=== PATIENT | female | born 1995 | race Caucasian/White ===

== ENCOUNTER 2021-10-29 13:36 | Emergency (ER) | payer MEDICAID ==
[~2021-10-29] VITALS: Ht 170.2 cm; Wt 128.8 kg
[2021-10-29 13:40] VITALS: BP 149/73
[2021-10-29] MEDS ORDERED: MORPHINE SULFATE 4 MG/ML SYR IVP ONE (14:25)
[2021-10-29] MEDS ORDERED: NACL 0.9% 1,000 ML IV ONE (14:25)
[2021-10-29] MEDS ORDERED: METOCLOPRAMIDE 10 MG/2 ML INJ VIAL IVP ONE (14:25)
--- NOTE | 2021-10-29 14:32 | NUR ---
FLU AND NATHANIEL SWAB COLLECTED AND HANDED TO MONTEZ GARSIA
--- NOTE | 2021-10-29 14:48 | NUR ---
26 Y/O F BIB SELF WITH C/O BODY ACHES, CHILLS, AND NAUSEA X1 WEEK, REPORTS TAKING IBUPROFEN AND PENICILLIN WITH NO RELIEF. DENIES SOB, CP, FEVERS OR RECENT SICK CONTACTS. PT STATES 8/10 PAIN. MEDHX: ANEMIA ALLERGIES: NKA
[2021-10-29 14:52] LABS: BILIRUBIN,URINE NEGATIVE (NEGATIVE); BLOOD, URINE NEGATIVE (NEGATIVE); LEUKOCYTE ESTERASE ,URINE TRACE (NEGATIVE); NITRITE, URINE NEGATIVE (NEGATIVE); UGLUCOSE NEGATIVE (NEGATIVE)
[2021-10-29 14:54] LABS: APPEARANCE,URINE HAZY (CLEAR); COLOR,URINE STRAW (YELLOW)
[2021-10-29 15:16] LABS: RBC,URINE NONE SEEN /HPF (0-5); WBC,URINE 0-5 /HPF (0-5); YEAST,URINE Few /HPF (None Seen)
[2021-10-29] MEDS ORDERED: FLUCONAZOLE 100 MG TAB PO ONE (15:50)
[2021-10-29] MEDS ORDERED: CRUSHER, PILL MC ONE (15:54)
--- NOTE | 2021-10-29 16:00 | NUR ---
PT REQUESTING FOR JUICE. PER DR EMERITA MARTINEZ TO GIVE. APPLE JUICE PROVIDED.
--- NOTE | 2021-10-29 16:27 | NUR ---
DR FELDER AT BEDSIDE REEXAMINING PT
--- NOTE | 2021-10-29 16:33 | NUR ---
XRAY AT BEDSIDE
--- NOTE | 2021-10-29 16:39 | NUR ---
LAB AT BEDSIDE
[2021-10-29 17:09] LABS: BASOPHILS % (AUTO) 0.2 % (0.0-2.0); EOSINOPHILS % (AUTO) 0.2 % (0.0-4.0); HEMATOCRIT 24.2 % (36-48); HEMOGLOBIN 7.1 g/dL (12.0-16.0); LYMPHOCYTES % (AUTO) 11.5 % (20.5-51.1); MEAN CORPUSCULAR HEMOGLOBIN 17 pg (27-31); MEAN CORPUSCULAR HGB CONC 30 g/dL (33-37); MEAN CORPUSCULAR VOLUME 57.7 fL (80-94); MONOCYTES # (AUTO) 0.5 K/uL (0.8-1.0); MONOCYTES % (AUTO) 6.3 % (1.7-9.3); NEUTROPHILS # (AUTO) 6.9 K/uL (1.8-7.7); NEUTROPHILS % (AUTO) 81.8 % (42.2-75.2); PLATELET COUNT (AUTO) 165 K/uL (140-450); RED BLOOD CELL COUNT(AUTO) 4.19 MIL/uL (4.20-5.40); RED CELL DISTRIBUTION WIDTH 20.1 % (11.6-13.7); WHITE BLOOD COUNT (AUTO) 8.5 K/uL (4.8-10.8)
--- NOTE | 2021-10-29 17:53 | NUR ---
Caty asher in ED - 10/29/21 at 1924 by [email or web address] PT REQUESTING FOR MARK, PER DR EMERITA MARTINEZ TO GIVE. PROVIDED WITH SANDWICH
--- NOTE | 2021-10-29 17:53 | NUR ---
PT REQUESTING FOR FOOD, PER DR EMERITA MARTINEZ TO GIVE. PROVIDED WITH SANDWICH
--- NOTE | 2021-10-29 19:24 | NUR ---
Pt report given to MAREN MARTINI. Transfer of care at this time.
--- NOTE | 2021-10-29 19:40 | NUR ---
LABS AT BEDSIDE FOR BLOOD REDRAW
--- NOTE | 2021-10-29 21:36 | NUR ---
S/W TOM GIORDANO WHO STATED BLOOD WILL NOT BE READY TONIGHT D/T ANTIBODIES AND WILL NEED TO BE SENT OUT TO [place]. DR. FELDER NOTIFIED.
[2021-10-29] MEDS ORDERED: IBUP-2213 PO (21:53)
[2021-10-29 22:05] VITALS: BP 135/77
--- NOTE | 2021-10-29 22:07 | NUR ---
Patient discharged with v/s stable. Written and verbal after care instructions given and explained. Patient alert, oriented and verbalized understanding of instructions. Ambulatory with steady gait. All questions addressed prior to discharge. ID band removed. Patient advised to follow up with PMD. Rx of Ibuprofen given. Patient educated on indication of medication including possible reaction and side effects. Opportunity to ask questions provided and answered. VSS, A/OX4, AMBULATORY, UNLABORED BREATHING, AND CLAM DEMEANOR. pt left AMA, risks were discussed with pt and AMA form signed.
== END 2021-10-29 22:05 | disposition home or self-care (01) ==
LOC: MED 13:36
DX: B34.9 Viral infection, unspecified (principal); Z20.822 Contact with and (suspected) exposure to COVID-19; D64.9 Anemia, unspecified
CPT/HCPCS: 36415; 71045; 81001; 81025; 85025; 86870; 86886; 86900; 86901; 86920; 87086; 87426; 87804; 96361; 96374; 96375; 99291; J2270; J2765; J7030; Q0092